=== PATIENT | male | born 1970 | race Caucasian/White ===

== ENCOUNTER → 2022-06-13 | Outpatient (CLI) | payer MEDICAID, OTHER ==
[~2022-06-13] MED LIST: ADME100I2; ATOR40TA75 PO; BASA100I SC; BIKT1TAB; DULA3PEN; ECOT81TA5 PO; GABA-282 PO; LISI5TAB11; METO1TAB32 PO; STEG15TA PO; TADA10TA; TEST200I14; ZOLP6.2517
== END ==
LOC: M LABSMTC 09:02
PROVIDERS: ATTEND Anesthesiology
DX: Z01.818 Encounter for other preprocedural examination (principal); Z11.52 Encounter for screening for COVID-19

== ENCOUNTER 2022-06-18 08:41 | Day surgery (SDC) | payer MEDICAID, OTHER ==
[~2022-06-18] VITALS: Ht 172.7 cm; Wt 118.8 kg
[~2022-06-18 08:41] MED LIST changes: +BSS IRRIG/VANCO(10MG)/TOBRA(5MG)/EPINEPH(1:1000-0.5CC)500ML BAG-ORONLY IR ONE; +CEFUROXIME 1MG/0.1ML INTRACAMERAL INJ As Ordered ONE; +LIDOCAINE 1% SDV 5ML VIAL As Ordered ONE; +LIDOCAINE 3.5 % 1ML OPHTH TOPICAL GEL OU ONE; +OFLOXACIN 0.3 % (OCUFLOX) OPTH SOL 5ML OD ONE; +PHENYLEPHRINE HCL 10 % OPHTH. SOL 5ML OD PRN
[2022-06-18] MEDS ORDERED: PROPARACAINE 0.5% OPHTH SOL 15ML OU ONE (09:45)
[2022-06-18] MEDS: TROPICAMIDE 1% OPHTH SOLN 2ML OD SCH ×3 (09:54→10:10)
[2022-06-18] MEDS: PHENYLEPHRINE 2.5% OPHTH SOL 2ML OD SCH ×3 (09:54→10:10)
[2022-06-18] MEDS: CYCLOPENTOLATE 1% OPHTH SOLN 2 ML BTL OD SCH ×3 (09:55→10:09)
[2022-06-18] MEDS ORDERED: MIDAZOLAM INJ 2MG/2ML VIAL (J2250 PER 1MG) As Ordered ONE (10:45)
[2022-06-18] MEDS ORDERED: fentaNYL 100 MCG/2 ML INJECTION As Ordered ONE (10:45)
[2022-06-18 11:07] VITALS: BP 128/61
== END 2022-06-18 11:15 | disposition home or self-care (01) ==
LOC: M SDC 08:41
PROVIDERS: ATTEND Ophthalmology
DX: H25.11 Age-related nuclear cataract, right eye (principal); I10 Essential (primary) hypertension; E78.5 Hyperlipidemia, unspecified; E11.9 Type 2 diabetes mellitus without complications; Z98.61 Coronary angioplasty status; Z79.4 Long term (current) use of insulin; Z79.899 Other long term (current) drug therapy; C83.30 Diffuse large B-cell lymphoma, unspecified site; Z92.3 Personal history of irradiation; Z92.21 Personal history of antineoplastic chemotherapy; Z79.82 Long term (current) use of aspirin
CPT/HCPCS: 66984; J0697; J2250; J3010; V2632